=== PATIENT | female | born 1955 | race Caucasian/White ===

== ENCOUNTER → 2021-08-26 | Outpatient (CLI) | payer MEDICARE, OTHER, SELFPAY ==
--- NOTE | 2021-08-26 12:05 | BRBX_PTH ---
PATIENT: SANDRA PRESTON LOC: [facility] U#:[id number] AGE/SX: 65/F ROOM: RE08/26/[address]: Dr. Lorelei Hernandez MD : [id number] BED: DIS: 08/26/2021 SPEC #: [id number] RECD: 08/26/21 13:05 STATUS: MARGARET RESamuel #: [id number] GOLDY: 08/26/21 12:[address]: Lorelei Hernandez DEPT: SURGICAL PATHOLOGY RECD BY: Chanda Caceres ENTERED: 08/26/21 13:17 SP TYPE: BREAST BX OTHR DR: Bel Alston, ALONSO Tissues: Right breast, NOS Procedures: Surgery Specimen Level IV HEADER OPERATION: Right breast stereotactic needle core biopsy PRE-OP DIAGNOSIS: Inferior medial breast calcifications TISSUE SUBMITTED: Right breast ISCHEMIC TIME: 2 minutes FIXATION TIME: 7.5 hours MICROSCOPIC DIAGNOSIS Right breast, inferior medial breast calcification, stereotactic needle core biopsy: Hyalinized and focally calcified fibroadenoma. Focal fibrocystic changes. Negative for atypia or malignancy. See comment. SUSANNA:rohan 08/27/2021 COMMENT Correlation with clinical, radiologic findings and appropriate follow up are necessary. MICROSCOPIC DESCRIPTION Slides are reviewed. GROSS DESCRIPTION Received in fixative is one container labeled with the patient's name and designated right breast. The specimen consists of multiple elongated fragments of lewis-yellow fibroadipose tissue that in aggregate measure 5 x 3 x 0.3 cm. The entire specimen is submitted in two cassettes. / SUSANNA:rohan 08/26/2021 TC:1 CPT: 10251
--- NOTE | 2021-08-26 12:58 | OP.PCM_ITS ---
Report of Operation Date of Procedure: 08/26/21 Pre-Operative Diagnosis: abnormal right breast mammograms Post-Operative Diagnosis: same as above Surgery/Procedure Performed:: right stereotactic breast biopsy Description of Surgical Findings:: abnormal calcifications of right breast Surgeon: Lorelei Hernandez Type of Anesthesia: Local Specimen's removed: right breast tissue Estimated Blood Loss (mL): minimal Description of Procedure: After informed consent was given, the patient was brought into the Breast Biopsy suite. Appropriate time out protocol was followed. The patient was placed in the prone position on the stereotactic biopsy table. The patient?s right breast was then placed in the opening at the head of the biopsy table. A environmental quality analyst compression mammogram was then obtained in the lateral view. The suspicious radiological lesion was thus identified. Stereo pictures of the lesion were then taken for XYZ coordinates. The Mammotome biopsy stylus was then positioned where it would be entering into the patient?s breast. The skin at this site was then cleansed with a surgical skin preparation. The skin and subcutaneous tissues at this site were then infiltrated with 1% xylocaine. A small skin incision was made with an 11 blade scalpel. The biopsy stylus was then positioned into the patient?s breast at the proper coordinates of depth. Using the Mammotome vacuum-assist device, several core samples of breast tissue were obtained. A specimen mammogram was the obtained. It revealed that the abnormal calcifications were within the specimen. I reviewed this personally and concluded that the tissue sampling was adequate. A hemostatic marker clip was then placed into the biopsy cavity and a environmental quality analyst film revealed that it was properly deployed. The patient was then placed in the supine position and pressure was applied to the breast until no active bleeding was noted. S teristrips were applied to reapproximate the skin. A unilateral mammogram in the CC and MLO view were then taken which revealed that the marker clip was in the same area as the previous suspicious lesion. The patient tolerated the procedure well and was discharged from the Breast Biopsy suite in good condition. Complications none noted
== END | disposition home or self-care (01) ==
LOC: BIRAD 10:47
PROVIDERS: PCP Nurse Practitioner Primary Care; Visit Provider Surgery
DX: D24.1 Benign neoplasm of right breast (principal); R92.8 Other abnormal and inconclusive findings on diagnostic imaging of breast
CPT/HCPCS: 19101; 19081; 88305; J7050